=== PATIENT | female | born 1980 | race Caucasian/White ===

== ENCOUNTER 2023-09-23 10:23 | Outpatient (CLI) | payer BC, SELFPAY ==
[2023-09-26 06:42] LABS: Progesterone 20.5 ng/mL (***)
== END 2023-09-23 10:24 | disposition home or self-care (01) ==
LOC: ANHLAB 10:27
PROVIDERS: PCP Family Medicine; Visit Provider Obstetrics & Gynecology
DX: O09.10 Supervision of pregnancy with history of ectopic pregnancy, unspecified trimester (principal); Z3A.00 Weeks of gestation of pregnancy not specified
CPT/HCPCS: 36415; 84144; 84702

== ENCOUNTER 2023-09-25 07:10 | Outpatient (CLI) | payer BC, SELFPAY | END 2023-09-25 07:11 | disposition home or self-care (01) | PROVIDERS: PCP Family Medicine; Visit Provider Obstetrics & Gynecology | DX: O09.10 Supervision of pregnancy with history of ectopic pregnancy, unspecified trimester (principal) | CPT/HCPCS: 36415; 84702 ==

== ENCOUNTER 2023-10-16 02:52 | Day surgery (SDC) | payer BC, SELFPAY ==
[2023-10-13 12:23] VITALS: BMI 24.0
--- NOTE | 2023-10-13 12:28 | PC.NURSE ---
Report to the Outpatient Waiting Room, entrance under the green pavilion located off [facility], at time 0600 on date 10/16/23. Planned Procedure Time: 0730. Time changes happen often and if your time is changed the preop area will call you the afternoon before. - You and your visitor will be asked to self-screen and do not enter if you have any COVID symptoms. - A mask is optional within the hospital at this time. Patients may have clear liquids (water, carbonated beverages, clear teas, apple juice) until 3 hours prior to surgery with a maximum of 20 ounces. - No food from midnight until time of surgery Take the following medications with a SIP of water the morning of surgery: N/A DO NOT STOP ANY OF YOUR OTHER PRESCRIPTION MEDICATIONS PRIOR TO SURGERY ?EXCEPT THE FOLLOWING Medications to discontinue per physician: N/A Date to take last dose: N/A Please no make-up, nail telugu, hairspray, perfume, deodorant, or body powder the day of surgery. No jewelry (including any body piercings) or valuables the day of surgery, leave them at home. Please take a shower or bath the night before, or the morning of, surgery with an antibacterial soap. Wear comfortable, loose fitting clothing. - Jewelry must be removed prior to entering the operating room. Rings and piercings that are not removed may be cut off. - The hospital will not accept responsibility for valuables. - Please leave all valuables, including medications, at home the day of surgery. If you are going home after surgery, a licensed rolloff truck driver must drive you home. - NO public transportation without another adult if you receive anesthesia. - We recommend that an adult stay with you for 24 hours following discharge. - We also recommend that you do not drive, make important decision, drink alcoholic beverages, or take any drugs that were not prescribed by your health care provider for at least 24 hours after your discharge time. Follow any additional instructions given to you from your surgeon. If you or anyone in your household have experienced Covid symptoms in the past week, please notify your surgeon or the nurse liaison at the phone number below for possible testing. Telephone instructions given to PT - LUCIE MAYFIELD and asked if any additional questions and then verbalized understanding. Patient advised to call surgeon office or pre surgery nurse liaison [phone] if any additional questions.
--- NOTE | 2023-10-14 06:49 | PM.IMHP ---
H&P: HPI History of Present Illness Date/Time: 10/14/23 06:49 Chief Complaint: First trimester missed A/B Narrative: Is a very kind 43 year female with history of ectopic has an intrauterine at 6 and half weeks with no heart tones. For watchful waiting versus considering suction dilatation. She opted for the latter. Risks benefits full [facility] Social History Social History Smoking packs per day: 0.5 Smoking cigarettes per day: 10.0 Years smoked: 25 Smoking pack-years: 12.50 Smoking status: Former smoker Tobacco type: cigarettes Smoking end date: 09/14/23 Alcohol intake: never Substance use: never Substance use type: does not use Living arrangements: with family Spiritual care concerns: No Meds Home Medications and Allergies Home Medications Medication Instructions Recorded Confirmed Type No Home Medications 10/13/23 10/13/23 History Allergies Allergy/AdvReac Type Severity Reaction Status Date / Time No Known Allergies Allergy Unverified 10/13/23 12:23 Exam Const: General: cooperative, healthy appearing and comfortable Nutritional Appearance: average body habitus Orientation/consciousness: oriented to person, oriented to place and oriented to time HENMT: Head: normal to inspection Resp: Effort & Inspection: normal respiratory effort Cardio: Rate: regular rate Rhythm: regular rhythm Heart sounds: S1 normal heart sound present and S2 normal heart sound present GI: Inspection: normal to inspection : External Female Exam: normal external appearance Speculum Exam - Vagina: normal appearance of the vagina Speculum Exam - Cervix: normal appearance of the cervix Bimanual exam- vagina & uterus: enlarged Bimanual Exam- Adnexa, other: normal adnexae Assessment and Plan Assessment and plan (1) Missed : Code(s): O02.1 - Missed Status: Acute Plan Suction dilatation curettage
[2023-10-16 06:04] VITALS: BP 115/81; PULSE 76; RESP 16; TEMP 36.4; O2SAT 100
--- NOTE | 2023-10-16 06:42 | P.PNAN_ITS ---
Anes - Initial Pre Proc Eval Procedure: Operation Date: 10/16/23 07:30 Proposed Procedures p Suction Dilation and Curettage - Reyes Silver MD Date/Time: 10/16/23 06:43 Surgeon: Reyes Silver MD Pre Op Diagnosis: Missed Ab Patient Data Age: 43 Gender: F Height: 1.73 m Weight: 71.7 kg Allergies Allergy/AdvReac Type Severity Reaction Status Date / Time No Known Allergies Allergy Unverified 10/13/23 12:23 Home Medications Medication Instructions Recorded Confirmed Type No Home Medications 10/13/23 10/13/23 History Patient hx anesthesia problems: none Family hx anesthesia problems: none Results Review: All pre-operative results and documents have been reviewed as part of the pre- operative evaluation. [facility] Social History Social History Smoking packs per day: 0.5 Smoking cigarettes per day: 10.0 Years smoked: 25 Smoking pack-years: 12.50 Smoking status: Former smoker Tobacco type: cigarettes Smoking end date: 09/14/23 Alcohol intake: never Substance use: never Substance use type: does not use Living arrangements: with family Spiritual care concerns: No Anes - Eval Final PreProcedure Day of Procedure 10/16/23 06:43 Patient weight: normal Heart: regular rate and rhythm Lungs: clear to auscultation Airway: Mallampati scale class II Neurological: alert and oriented Last oral intake: >/= 8 hours ASA classification: II Emergent: no Anesthetic plan: proceed Anesthesia type and monitoring: general GIVS and standard monitoring Results Review: All pre-operative results and documents have been reviewed as part of the pre- operative evaluation. Informed Consent: The patient's anesthetic plan and its attendant risks and benefits were discussed with the patient/family/POA. Questions were solicited and answers provided to the satisfaction of the patient/family/POA.
--- NOTE | 2023-10-16 06:45 | WPDHPUPDATE1 ---
History and Physical Update Update Date/Time: 10/16/23 06:45 History and Physical has been reviewed, including an updated exam of the patient. There are NO changes in the patient's condition. Risks, benefits, and alternatives have been discussed and questions answered. Patient agrees to proceed with procedure.
[2023-10-16] MEDS: ACETAMINOPHEN 500 MG TABLET 1000 MG PO (07:26)
[2023-10-16] MEDS: LACTATED RINGERS 1,000 ML 30 ML IV CONT (07:30)
[2023-10-16 07:38] LABS: Hematocrit 39.3 % (37.0-47.0); Hemoglobin 12.8 g/dL (12.0-15.0)
[2023-10-16] MEDS: LIDOCAINE HCL 1% LOCAL INJ 20 ML VIAL 10 ML INFILTRATE (07:54)
--- NOTE | 2023-10-16 08:00 | W.PM.PROC2 ---
Procedure Note - Detailed Date of Procedure 10/16/23 Pre-op Diagnosis Missed Ab Post-op Diagnosis Same Procedure Performed Suction dilatation curettage Surgeon Reyes Silver MD Anesthesia MAC and Local Indications This is a 43 with first-trimester missed A/B Findings Small amount products of conception uterus sounded 8 Description of Procedure Patient is prepped draped sterile fashion placed in dorsal position. Under excellent IV sedation weighted speculum placed in posterior fornix vagina. Anterior lip of cervix grasped with single-tooth tenaculum. 2.5cc 1% xylocaine anesthesia placed at 2, 4, 8, 10:00 a.m. of the cervix. Uterus sounded to 8cm. Serial dilatation with fragmented dilators performed followed by passage of the 9. Suction curette very small amount of tissue was able to be removed the polyp forceps was gently passed and no further tissue could be obtained after good grating sound was heard. Instruments were then withdrawn the patient went to recovery in satisfactory condition. All sponge, needle, instrument counts were correct. There were no immediate complications Estimated Blood Loss 25 Drains No Packing No Pathology Yes Complications No immediate complications Condition Stable Disposition PACU
[2023-10-16 08:01] VITALS: BP 111/79; PULSE 82; RESP 14; O2SAT 95
--- NOTE | 2023-10-16 08:04 | SUR.OPER ---
ROE Gonzalez delivered Surgical Specimen to lab. Delivered to Cady in lab. Results reported to Gee Ivey at 0804 10/16/23
[2023-10-16] MEDS: oxyCODONE HCL (*CRX) 5 MG TAB IR PO (08:26)
[2023-10-16 08:29] VITALS: BP 105/75; PULSE 64; RESP 20
[2023-10-16] MEDS: RHO(D) IMMUNE GLOBULIN 300 MCG/2 ML SYRINGE IM (08:35)
[2023-10-16 08:50] VITALS: BP 104/75; PULSE 64; RESP 20
== END 2023-10-16 09:00 | disposition home or self-care (01) ==
PROVIDERS: Visit Provider Obstetrics & Gynecology
PROC: (CPT 59820; principal; 2023-10-16 07:30)
DX: O02.1 Missed abortion (principal); Z87.891 Personal history of nicotine dependence
CPT/HCPCS: 59820; 36415; 85014; 85018; 85461; 86850; 86900; 86901; 88264; 88305; 90384; A9270; J1885; J2250; J2704; J2790; J3010; J7120

== ENCOUNTER 2024-02-16 12:22 | Outpatient (CLI) | payer BC, SELFPAY ==
--- NOTE | ~2024-02-16 | MR_ITS ---
MR breast BI wo/w con 02/17/2024 08:39 CDT INDICATION: Spiculated mass seen on prior outside mammogram and ultrasound dated 01/21/2024 TECHNIQUE: MRI of the breasts perform using standard protocol pre-and post IV contrast with the follo wing sequences: Axial T2 STIR, axial T1, axial vibrant T1 with fat suppression precontrast and multip hasic postcontrast. 14 cc MultiHance administered intravenously. COMPARISON: Outside diagnostic mammogram and left breast ultrasound dated 01/21/2024 FINDINGS: There are no abnormalities on the precontrast sequences. There is minimal background parenc hymal enhancement. No enhancing lesions following contrast administration. No areas of enhancement meeting threshold criteria on CAD analysis. No evidence of signal abnormalities in the axillary or i nternal mammary node distributions. LEFT BREAST: No signal abnormalities on precontrast sequences. There is minimal background parenchym al enhancement. There is a focal area of distortion in the lower inner quadrant of the left breast me asuring 4 x 3 x 2 mm with rapid persistent contrast enhancement. There are surrounding distortion of the breast parenchyma. This corresponds to the findings by mammography. No evidence of signal abnorma lities in the axillary or internal mammary node distributions.] IMPRESSION: 1: Right breast: Negative. No evidence of malignancy. BI-RADS category 1. Recommend annual mammo graphy follow-up. 2: Left breast: Foci of enhancement measuring 4 mm lower inner quadrant of the left breast at approx imately 8:00, middle third approximately 6.6 cm posterior to the nipple with rapid persistent enhance ment. There is contiguous distortion of the breast parenchyma. This corresponds to the area of mammog raphic concern. Second Look left breast ultrasound with attention to the area of interest recommended . If no mass identified, follow-up evaluation with stereotactic biopsy is recommended. BI-RADS CATEGORY 0 - INCOMPLETE STUDY, NEED ADDITIONAL IMAGING EVALUATION. Reviewed, dictated and finalized at location A. IMPRESSION: 1: Right breast: Negative. No evidence of malignancy. BI-RADS category 1. Recommend annual mammography follow-up. 2: Left breast: Foci of enhancement measuring 4 mm lower inner quadrant of the left breast at approximately 8:00, middle third approximately 6.6 cm posterior to the nipple with rapid persistent enhancement. There is contiguous distortio n of the breast parenchyma. This corresponds to the area of mammographic concer n. Second Look left breast ultrasound with attention to the area of interest re commended. If no mass identified, follow-up evaluation with stereotactic biopsy is recommended. BI-RADS CATEGORY 0 - INCOMPLETE STUDY, NEED ADDITIONAL IMAGING EVALUATION.
== END 2024-02-16 12:23 | disposition home or self-care (01) ==
LOC: ANHIMG 12:23
PROVIDERS: Visit Provider Surgery
DX: N63.20 Unspecified lump in the left breast, unspecified quadrant (principal); R92.343 Mammographic extreme density, bilateral breasts; R92.8 Other abnormal and inconclusive findings on diagnostic imaging of breast
CPT/HCPCS: 77049; A9577; C8908

== ENCOUNTER 2024-03-11 07:36 | Outpatient (CLI) | payer BC, SELFPAY ==
--- NOTE | ~2024-03-11 | MMUS_ITS ---
EXAMINATION: US GUIDED NEEDLE BIOPSY DATE: 03/11/2024 10:38 CDT INDICATION: Abnormal outside January 21, 2024 left mammogram revealing spiculated mass in suspicious microcalcifications in the posterior inner mid left breast TECHNIQUE AND FINDINGS: The risks and potential benefits of the procedure were discussed with the patient, and written inform ed consent was obtained. Timeout procedure was performed. After sterile preparation of the left breas t, 1% lidocaine was utilized for local anesthesia. A 12 G spring-loaded biopsy gun needle was advanced to the edge of the region of interest from an inf eromedial approach utilizing sonographic guidance. A total of 4 tissue core samples were obtained th rough the lesion. An Inrad tissue marker clip was then placed at the biopsy site. Hemostasis was ach ieved. A sterile bandage was applied. The patient tolerated procedure well and there was no evidence of immediate complication. The patien t was given verbal instructions prior to departing from the department. A two view mammogram was perf ormed to document tissue marker clip placement. The post-biopsy mammographic images reveal successful biopsy of the spiculated mass and multiple calcifications of interest. The tissue samples were submitted to surgical pathology for histologic analysis. IMPRESSION: 1. Successful ultrasound guided biopsy of left breast mass and microcalcifications with biopsy marke r placement. Please refer to pathology report for histologic analysis. Reviewed, dictated and finalized at Location A. Reviewed, dictated and finalized at location A. IMPRESSION: 1. Successful ultrasound guided biopsy of left breast mass and microcalcificat ions with biopsy marker placement. Please refer to pathology report for histolo gic analysis. IMPRESSION: 1. Successful ultrasound guided biopsy of left breast mass and microcalcificat ions with biopsy marker placement. Please refer to pathology report for histolo gic analysis.
== END 2024-03-11 07:37 | disposition home or self-care (01) ==
PROVIDERS: Visit Provider Surgery
DX: N63.20 Unspecified lump in the left breast, unspecified quadrant (principal); R92.8 Other abnormal and inconclusive findings on diagnostic imaging of breast
CPT/HCPCS: 19083; 76642; 88305; A4648

== ENCOUNTER 2024-03-26 08:09 | Outpatient (CLI) | payer BC, SELFPAY ==
--- NOTE | ~2024-03-26 | MM_ITS ---
MM_MAGSEEDLT_MG DATE: 03/26/2024 09:23 INDICATION: Preoperative Magseed placement for surgical localization TECHNIQUE: The purpose of the procedure, technical details, indications were discussed with the patie nt. The patient indicated understanding and gave consent. Timeout procedure was performed. The left breast was placed in mediolateral compression with the biopsy grid apparatus over the medial aspect of the left breast. The skin of the medial aspect of the left breast was prepared with sterile Betadine solution. 1% lido brittany local anesthetic was administered to the skin and underlying subcutaneous tissues. The introducer needle was placed into the breast from a medial approach and directed toward the radio paque biopsy marker in the posterior inner mid left breast. Subsequently, the depth of the needle was adjusted using craniocaudal mammographic exposures to assess needle position. Once the needle was in proximity to the biopsy marker, the mag C was deployed and the needle withdrawn. Final mediolateral and craniocaudal exposures reveal the Magseed adjacent to the biopsy marker in the posterior inner mid left breast.. IMPRESSION: Successful Magseed placement adjacent to biopsy marker and posterior inner mid left karel st Reviewed, dictated and finalized at Location A. Reviewed, dictated and finalized at location A. IMPRESSION: Successful Magseed placement adjacent to biopsy marker and posteri or inner mid left breast
== END 2024-03-26 08:10 | disposition home or self-care (01) ==
PROVIDERS: Visit Provider Surgery
DX: R92.8 Other abnormal and inconclusive findings on diagnostic imaging of breast (principal); N63.20 Unspecified lump in the left breast, unspecified quadrant
CPT/HCPCS: 19281; A4648

== ENCOUNTER 2024-04-28 01:15 | Day surgery (SDC) | payer BC, SELFPAY ==
[2024-04-21 09:59] VITALS: BMI 22.8
--- NOTE | 2024-04-21 10:04 | PC.NURSE ---
Report to the Outpatient Waiting Room, entrance under the green pavilion located off [facility], at time _0600_ on date _[id number]_. Planned Procedure Time: _0730_. Time changes happen often and if your time is changed the preop area will call you the afternoon before. - You and your visitor will be asked to self-screen and do not enter if you have any COVID symptoms. - A mask is optional within the hospital at this time. Patients may have clear liquids (water, carbonated beverages, clear teas, apple juice) until 3 hours prior to surgery with a maximum of 20 ounces. - No food from midnight until time of surgery Take the following medications with a SIP of water the morning of surgery: ___None DO NOT STOP ANY OF YOUR OTHER PRESCRIPTION MEDICATIONS PRIOR TO SURGERY ?EXCEPT THE FOLLOWING Medications to discontinue per physician None Date to take last dose Please no make-up, nail bengali, hairspray, perfume, deodorant, or body powder the day of surgery. No jewelry (including any body piercings) or valuables the day of surgery, leave them at home. Please take a shower or bath the night before, or the morning of, surgery with an antibacterial soap. Wear comfortable, loose fitting clothing. - Jewelry must be removed prior to entering the operating room. Rings and piercings that are not removed may be cut off. - The hospital will not accept responsibility for valuables. - Please leave all valuables, including medications, at home the day of surgery. If you are going home after surgery, a licensed yard driver must drive you home. - NO public transportation without another adult if you receive anesthesia. - We recommend that an adult stay with you for 24 hours following discharge. - We also recommend that you do not drive, make important decision, drink alcoholic beverages, or take any drugs that were not prescribed by your health care provider for at least 24 hours after your discharge time. Follow any additional instructions given to you from your surgeon. If you or anyone in your household have experienced Covid symptoms in the past week, please notify your surgeon or the nurse liaison at the phone number below for possible testing. Telephone instructions given to _Eulalia_and asked if any additional questions and then verbalized understanding. Patient advised to call surgeon office or pre surgery nurse liaison [phone] if any additional questions.
[2024-04-28] VITALS (8 sets, daily range): BP systolic 94–128; BP diastolic 62–87; PULSE 62–85; RESP 10–20; TEMP 36.1–37; O2SAT 99–100
--- NOTE | ~2024-04-28 | MM_ITS ---
MM_FAXITRON_MG 04/28/2024 08:31 Indication: Status post surgical biopsy of left breast Procedure: Single surgical specimen of the left breast Comparison: 03/26/2024 Findings: Surgical specimen demonstrates magseed. The previous coil tissue marker is not identified i n the specimen. There are adjacent calcifications. Findings discussed with Dr. Schwartz on 04/28/2024 a t 8:40 AM. Impression: 1: Surgical specimen contains magseed of interest with adjacent calcifications. Coiled tissue marker from previous biopsy not visualized in the specimen. Reviewed, dictated and finalized at location B. Impression: 1: Surgical specimen contains magseed of interest with adjacent calcifications. Coiled tissue marker from previous biopsy not visualized in the specimen.
[2024-04-28] MEDS: LACTATED RINGERS 1,000 ML 30 ML IV CONT ×2 (06:45→08:51)
--- NOTE | 2024-04-28 07:02 | WPDHPUPDATE1 ---
History and Physical Update Update Date/Time: 04/28/24 07:02 History and Physical has been reviewed, including an updated exam of the patient. There are NO changes in the patient's condition. Risks, benefits, and alternatives have been discussed and questions answered. Patient agrees to proceed with procedure. Excisional biopsy LEFT posterior medial breast lesion excisional biopsy for discordant pathology findings
[2024-04-28] MEDS: ACETAMINOPHEN 500 MG TABLET 1000 MG PO (07:10)
--- NOTE | 2024-04-28 07:21 | P.PNAN_ITS ---
Anes - Initial Pre Proc Eval Procedure: Operation Date: 04/28/24 07:30 Proposed Procedures p Excisional Biopsy Left Breast Mass with Mag Seed Localization, Possible Adjacent Tissue Transfer - Heather Schwartz MD Date/Time: 04/28/24 07:21 Surgeon: Heather Schwartz MD Pre Op Diagnosis: abn and inclusive findings on breast imaging Patient Data Age: 44 Gender: F Height: 1.73 m Weight: 68.2 kg Allergies Allergy/AdvReac Type Severity Reaction Status Date / Time No Known Allergies Allergy Unverified 04/22/24 14:57 Home Medications Medication Instructions Recorded Confirmed Type No Home Medications 03/23/24 04/21/24 History Patient hx anesthesia problems: none Family hx anesthesia problems: none Results Review: All pre-operative results and documents have been reviewed as part of the pre- operative evaluation. [facility] Family History Family History (Updated 01/29/24 @ 15:10 by Berta Cameron CMA) Father Hypertension Heart disease Mother Hypertension Heart disease Sibling Diabetes mellitus Hypertension Grandparent Heart disease Cancer of kidney Social History Social History (Updated 01/29/24 @ 15:07 by Berta Cameron CMA) Smoking packs per day: 0.5 Smoking cigarettes per day: 10.0 Years smoked: 20 Smoking pack-years: 10.00 Smoking status: Current every day smoker Tobacco type: cigarettes Smoking end date: 09/14/23 Alcohol intake: never Substance use: never Substance use type: does not use Do You Feel Safe in your Home?: Yes Lack of Transportation: No Lack of Food: Never True Current Housing: I Have Housing Concerned About Future Housing: No Difficulty Paying Gas/Electric Bills: No Difficulty Paying for Meds: No Currently Unemployed: No Education: High School Diploma/GED Difficulty w/ Childcare or Family Care: No Living arrangements: with family Spiritual care concerns: No Anes - Eval Final PreProcedure Day of Procedure 04/28/24 07:21 Patient weight: normal Heart: regular rate and rhythm Lungs: clear to auscultation Airway: Mallampati scale class II Neurological: alert and oriented Last oral intake: >/= 8 hours ASA classification: II Emergent: no Anesthetic plan: proceed Anesthesia type and monitoring: general LMA and standard monitoring Results Review: All pre-operative results and documents have been reviewed as part of the pre- operative evaluation. Informed Consent: The patient's anesthetic plan and its attendant risks and benefits were discussed with the patient/family/POA. Questions were solicited and answers provided to the satisfaction of the patient/family/POA.
[2024-04-28] MEDS: ceFAZolin 2 GM/D5W 50 ML 2 GM/50 ML BAG IVPB (07:26)
[2024-04-28] MEDS: BUPIVACAINE/EPINEPHRINE 0.5% 50 ML VIAL 20 ML INFILTRATE (07:47)
--- NOTE | 2024-04-28 08:47 | W.PM.PROC2 ---
Procedure Note - Detailed Date of Procedure 04/28/24 Pre-op Diagnosis Left breast mass with discordant radiologic and pathologic findings on core needle biopsy Post-op Diagnosis Same Procedure Performed Excisional biopsy of left breast mass with magseed localization Surgeon Heather Schwartz MD Insole And Heel Stiffener Abiola Olson PA-C Anesthesia General Description of Procedure Patient was identified in the pre-operative area and brought to the OR suite. She underwent tumor localization previously by IR with magseed placement. She was laid supine in the operating table and sequential compression devices were applied. General anesthesia was induced without difficulties. The left chest was prepped and draped in a sterile fashion. The sentimag probe was used to identify the area where the magseed was placed and a medial inframammary incision was made. Dissection was carried down through the subcutaneous tissue into the breast tissue. The tumor was identified with palpation and using sentimag probe, and a rim of normal breast tissue was excised along with the tumor as our lumpectomy specimen. Once the specimen was completely excised, it was oriented using surgical paint according to fitness/wellness director instructions. The specimen was placed in the faxitron and 2 radiographs were obtained and sent to Radiology for radiographic confirmation of Tumor, biopsy marker and magseed within the specimen. The area of suspicious calcifications, architectural distortion and magseed were noted in the center of the specimen, but the biopsy clip was not identified in the faxitron images. Margins were assessed with the sentimag and faxitron images and noted to be adequate, and no clip was identified on 2nd look into the specimen cavity. Once the radiographic confirmation was received, the wound was irrigated with saline and hemostasis was assured. The deep dermal layer was approximated using interrupted 3-0 vicryl followed by 4-0 monocryl for the skin. Dermabond was applied followed by a surgical bra. Patient was awoken from anesthesia and taken to the recovery area in stable condition. All needles, instruments and sponge counts were correct as reported by the operating room staff. Patient tolerated the procedure well with no immediate complications. Abiola Olson PA-C was required for positioning and retraction throughout the entire case. Estimated Blood Loss 5 Drains No Complications No immediate complications Condition Stable Disposition PACU [facility] Billing Surgery - Charge Forward: Surgery Billing (CPT [id number])
[2024-04-28] MEDS: fentaNYL CITRATE INJ (*CRX) 100 MCG/2 ML VIAL 25 MCG IV PUSH (09:13)
== END 2024-04-28 10:30 | disposition home or self-care (01) ==
PROVIDERS: Visit Provider Surgery
PROC: (CPT 19125; principal; 2024-04-28 07:30)
DX: D24.2 Benign neoplasm of left breast (principal); N60.12 Diffuse cystic mastopathy of left breast; N60.22 Fibroadenosis of left breast; Z18.89 Other specified retained foreign body fragments; F17.210 Nicotine dependence, cigarettes, uncomplicated
CPT/HCPCS: 19125; 76098; 88307; A9270; J0690; J1100; J2250; J2405; J2704; J3010; J7120; Q9968